=== PATIENT | male | born 1945 | race Caucasian/White ===

== ENCOUNTER 2020-09-11 11:18 | Inpatient (IN) | payer OTHER, MEDICARE ==
[2020-09-11] MEDS ORDERED: Morphine 4 MG/ML VIAL ONE (13:39)
[2020-09-11] MEDS ORDERED: Fentanyl 100 MCG/2 ML VIAL ONE ×2 (14:51→16:24)
[2020-09-11] MEDS ORDERED: Acetaminophen/Codeine 30-300mg Tablet PO PRN (15:52)
[2020-09-11] MEDS ORDERED: Acetaminophen 325 MG TAB PO PRN (15:52)
[2020-09-11] MEDS ORDERED: traMADol HCl 50 MG TAB PO PRN (15:52)
[2020-09-11] MEDS ORDERED: Milk Of Magnesia 30 ML UDCUP PO PRN (15:52)
[2020-09-11] MEDS ORDERED: Ondansetron PF 4 MG/2 ML Vial IVP PRN (15:52)
[2020-09-11] MEDS ORDERED: Fentanyl 100 MCG/2 ML VIAL SLOW IVP PRN (15:52)
[2020-09-11] MEDS ORDERED: Communication Order-Pharmacy FS SCH ×2 (16:00→16:45)
[2020-09-11] MEDS ORDERED: Lidocaine 1% PF 5 ML VIAL ONE (16:31)
[2020-09-11] MEDS ORDERED: Calcium Chloride 1 GM/10 ML Abboject SYRINGE ONE (16:31)
[2020-09-11] MEDS ORDERED: Rocuronium Bromide 10 MG/ML (10ML VIAL) ONE (16:31)
[2020-09-11] MEDS ORDERED: Ondansetron PF 4 MG/2 ML Vial ONE (16:31)
[2020-09-11] MEDS ORDERED: Dexamethasone 20 MG/5 ML VIAL ONE (16:31)
[2020-09-11] MEDS ORDERED: ePHEDrine Sulfate 50 MG/10 ML VIAL ONE ×2 (16:31→18:23)
[2020-09-11] MEDS ORDERED: PROPOFOL 200 MG/20 ML VIAL ONE (16:31)
[2020-09-11] MEDS ORDERED: PHENYLEPHRINE-NS 100 MCG/ML 10 ML SYRINGE ONE ×3 (16:31→17:58)
[2020-09-11] MEDS ORDERED: SUGAMMADEX SODIUM 200 MG/2 ML VIAL ONE (18:04)
[2020-09-11] MEDS ORDERED: Hydrocortisone Sod Succ/PF 100 mg/2 ml Vial IVP SCH (20:15)
[2020-09-11 21:20] LABS: Anion Gap 16 mmol/L (10-20); BUN (Urea Nitrogen) 15 mg/dL (8.4-25.7); Calc. Creatinine Clearance 0 mL/min (70-130); Calcium 8.8 mg/dL (7.8-10.44); Carbon Dioxide 18 mmol/L (23-31); Chloride 108 mmol/L (98-107); Glucose 205 mg/dL (83-110); Magnesium 1.6 mg/dL (1.6-2.6); Phosphorus 5.3 mg/dL (2.3-4.7); Potassium 4.9 mmol/L (3.5-5.1); Sodium 137 mmol/L (136-145)
[2020-09-11 21:40] LABS: #Lymphocytes 0.8 thou/uL (1.20-3.40); #Monocytes 0.6 thou/uL (0.11-0.59); #Neutrophils 9.5 thou/uL (1.40-6.50); %Basophils 0.1 % (0.0-1.0); %Eosinophils 0.2 % (0.0-10.0); %Lymphocytes 7.5 % (21.0-51.0); %Monocytes 5.5 % (0.0-10.0); %Neutrophils 86.7 % (42.0-75.0); Hemoglobin 11.3 g/dL (14.0-18.0); Mean Corpuscular HGB CONC 35.7 g/dL (32.0-36.0); Mean Corpuscular Hemoglobin 35.4 pg (27.0-31.0); Mean Corpuscular Volume 99.2 fL (78.0-98.0); Mean Platelet Volume 8.9 fL (7.4-10.4); Platelet Count 147 thou/uL (130-400); RBC Distribution Width 12.2 % (11.5-14.5)
[2020-09-11] MEDS ORDERED: Magnesium Sulfate 3 GM in Sodium Chloride 0.9% 250 ML 250 ML IVPB SCH (22:30)
[2020-09-11] MEDS: Sodium Chloride 0.9% 1,000 ML IV SCH (23:20)
[2020-09-11] MEDS: CEFAZOLIN 2 GM in Premix Bag 1 BAG IVPB SCH (23:20)
[2020-09-11 23:34] VITALS: BMI 30.9
[2020-09-11 23:50] LABS: Prothrombin Time 16.3 sec (12.0-14.7)
[2020-09-12 00:09] LABS: INR-International Normal Ratio 1.3
[2020-09-12] MEDS ORDERED: Famotidine 20 MG TAB PO SCH (01:15)
[2020-09-12] MEDS ORDERED: Hydrocortisone Sod Succ/PF 100 mg/2 ml Vial IVP SCH (03:00)
[2020-09-12 04:40] LABS: #Lymphocytes 0.9 thou/uL (1.20-3.40); #Neutrophils 6.5 thou/uL (1.40-6.50); %Basophils 0.1 % (0.0-1.0); %Eosinophils 0.1 % (0.0-10.0); %Lymphocytes 10.5 % (21.0-51.0); %Monocytes 11.4 % (0.0-10.0); %Neutrophils 77.9 % (42.0-75.0); Hemoglobin 8.4 g/dL (14.0-18.0); Mean Corpuscular HGB CONC 36.3 g/dL (32.0-36.0); Mean Corpuscular Hemoglobin 36.1 pg (27.0-31.0); Mean Corpuscular Volume 99.4 fL (78.0-98.0); Mean Platelet Volume 9.2 fL (7.4-10.4); Platelet Count 122 thou/uL (130-400); RBC Distribution Width 12.1 % (11.5-14.5); Red Blood Cell (RBC) Count 2.33 mill/uL (4.70-6.10); White Blood Cell (WBC) Count 8.3 thou/uL (4.8-10.8)
[2020-09-12 05:05] LABS: Anion Gap 14 mmol/L (10-20); BUN (Urea Nitrogen) 19 mg/dL (8.4-25.7); Calc. Creatinine Clearance 70 mL/min (70-130); Calcium 8.3 mg/dL (7.8-10.44); Carbon Dioxide 21 mmol/L (23-31); Chloride 108 mmol/L (98-107); Glucose 157 mg/dL (83-110); Magnesium 2.4 mg/dL (1.6-2.6); Potassium 4.5 mmol/L (3.5-5.1); Sodium 138 mmol/L (136-145)
[2020-09-12] MEDS: CEFAZOLIN 2 GM in Premix Bag 1 BAG IVPB SCH (05:14)
[2020-09-12 05:25] LABS: Phosphorus 3.6 mg/dL (2.3-4.7)
[2020-09-12] MEDS: Sodium Chloride 0.9% 1,000 ML IV SCH (07:16)
[2020-09-12] MEDS: Famotidine 20 MG TAB PO SCH ×2 (08:29→20:14)
[2020-09-12] MEDS: Enoxaparin Sodium 30 MG/0.3 ML SYRINGE SC SCH (08:29)
[2020-09-12] MEDS: traMADol HCl 50 MG TAB PO SCH ×3 (12:22→23:54)
[2020-09-12] MEDS: Ferrous Sulfate 325 MG TAB PO SCH (16:03)
[2020-09-12] MEDS: Ascorbic Acid 500 mg Chewable Tablet PO SCH (20:14)
[2020-09-13 05:37] LABS: #Lymphocytes 1.4 thou/uL (1.20-3.40); #Neutrophils 5.8 thou/uL (1.40-6.50); %Eosinophils 0.1 % (0.0-10.0); %Lymphocytes 17.1 % (21.0-51.0); %Monocytes 12.6 % (0.0-10.0); %Neutrophils 70.2 % (42.0-75.0); Hemoglobin 6.6 g/dL (14.0-18.0); Mean Corpuscular HGB CONC 36.1 g/dL (32.0-36.0); Mean Corpuscular Volume 99.8 fL (78.0-98.0); Platelet Count 98 thou/uL (130-400); Red Blood Cell (RBC) Count 1.84 mill/uL (4.70-6.10); White Blood Cell (WBC) Count 8.2 thou/uL (4.8-10.8)
[2020-09-13 05:50] LABS: Anion Gap 10 mmol/L (10-20); BUN (Urea Nitrogen) 21 mg/dL (8.4-25.7); Calc. Creatinine Clearance 93 mL/min (70-130); Calcium 7.6 mg/dL (7.8-10.44); Carbon Dioxide 21 mmol/L (23-31); Chloride 110 mmol/L (98-107); Glucose 111 mg/dL (83-110); Magnesium 1.9 mg/dL (1.6-2.6); Potassium 4.4 mmol/L (3.5-5.1); Sodium 137 mmol/L (136-145)
[2020-09-13] MEDS: traMADol HCl 50 MG TAB PO SCH ×3 (06:04→17:44)
[2020-09-13] MEDS ORDERED: Rosuvastatin 10 MG TAB PO SCH (09:00)
[2020-09-13] MEDS: Ascorbic Acid 500 mg Chewable Tablet PO SCH ×2 (09:20→20:45)
[2020-09-13] MEDS: Ferrous Sulfate 325 MG TAB PO SCH ×2 (09:20→17:46)
[2020-09-13] MEDS: Enoxaparin Sodium 30 MG/0.3 ML SYRINGE SC SCH (10:59)
[2020-09-13] MEDS: Famotidine 20 MG TAB PO SCH ×2 (10:59→17:45)
[2020-09-13] MEDS: traMADol HCl 50 MG TAB PO PRN (15:11)
[2020-09-13] MEDS: Ibuprofen 200 MG TAB PO SCH (20:45)
[2020-09-13] MEDS: Rosuvastatin 10 MG TAB PO SCH (20:45)
[2020-09-14] MEDS: traMADol HCl 50 MG TAB PO SCH ×4 (00:20→16:54)
[2020-09-14] MEDS: Ibuprofen 200 MG TAB PO SCH ×3 (04:31→20:57)
[2020-09-14 06:14] LABS: Anion Gap 10 mmol/L (10-20); BUN (Urea Nitrogen) 16 mg/dL (8.4-25.7); Calc. Creatinine Clearance 98 mL/min (70-130); Calcium 7.9 mg/dL (7.8-10.44); Carbon Dioxide 24 mmol/L (23-31); Chloride 109 mmol/L (98-107); Glucose 101 mg/dL (83-110); Potassium 4.2 mmol/L (3.5-5.1); Sodium 139 mmol/L (136-145)
[2020-09-14 06:20] LABS: #Eosinphils 0.1 thou/uL (0.0-0.7); #Lymphocytes 1.4 thou/uL (1.20-3.40); #Monocytes 0.8 thou/uL (0.11-0.59); #Neutrophils 4.8 thou/uL (1.40-6.50); %Basophils 0.3 % (0.0-1.0); %Lymphocytes 19.6 % (21.0-51.0); %Monocytes 11.7 % (0.0-10.0); %Neutrophils 66.5 % (42.0-75.0); Hemoglobin 7.3 g/dL (14.0-18.0); Mean Corpuscular HGB CONC 36.6 g/dL (32.0-36.0); Mean Corpuscular Hemoglobin 35.6 pg (27.0-31.0); Mean Corpuscular Volume 97.4 fL (78.0-98.0); Mean Platelet Volume 8.4 fL (7.4-10.4); Platelet Count 87 thou/uL (130-400); RBC Distribution Width 12.8 % (11.5-14.5); Red Blood Cell (RBC) Count 2.05 mill/uL (4.70-6.10); White Blood Cell (WBC) Count 7.2 thou/uL (4.8-10.8)
[2020-09-14] MEDS: Ferrous Sulfate 325 MG TAB PO SCH ×2 (08:25→16:53)
[2020-09-14] MEDS: Ascorbic Acid 500 mg Chewable Tablet PO SCH ×2 (08:25→20:58)
[2020-09-14] MEDS: Enoxaparin Sodium 30 MG/0.3 ML SYRINGE SC SCH (09:44)
[2020-09-14] MEDS: Famotidine 20 MG TAB PO SCH (16:53)
[2020-09-14] MEDS: Rosuvastatin 10 MG TAB PO SCH (20:58)
[2020-09-15] MEDS: traMADol HCl 50 MG TAB PO SCH ×5 (00:08→22:31)
[2020-09-15] MEDS: Ibuprofen 200 MG TAB PO SCH ×2 (04:39→11:44)
[2020-09-15 06:26] LABS: Hemoglobin 7.4 g/dL (14.0-18.0); Platelet Count 137 thou/uL (130-400)
[2020-09-15] MEDS ORDERED: Senokot S 8.6-50 MG TAB PO SCH (09:00)
[2020-09-15] MEDS: Ferrous Sulfate 325 MG TAB PO SCH ×3 (09:01→20:48)
[2020-09-15] MEDS: Ascorbic Acid 500 mg Chewable Tablet PO SCH ×2 (09:01→20:48)
[2020-09-15] MEDS: Polyethylene Glycol 3350 17 GM Packet PO SCH (09:02)
[2020-09-15] MEDS: Enoxaparin Sodium 30 MG/0.3 ML SYRINGE SC SCH (09:03)
[2020-09-15 13:03] LABS: #Basophils 0.1 thou/uL (0.0-0.2); #Eosinphils 0.1 thou/uL (0.0-0.7); #Lymphocytes 1.2 thou/uL (1.20-3.40); #Monocytes 0.7 thou/uL (0.11-0.59); #Neutrophils 6.6 thou/uL (1.40-6.50); %Basophils 0.7 % (0.0-1.0); %Eosinophils 1.2 % (0.0-10.0); %Lymphocytes 14.1 % (21.0-51.0); %Neutrophils 76.1 % (42.0-75.0); Hemoglobin 8.1 g/dL (14.0-18.0); Mean Corpuscular HGB CONC 33.8 g/dL (32.0-36.0); Mean Corpuscular Hemoglobin 33.4 pg (27.0-31.0); Mean Corpuscular Volume 98.7 fL (78.0-98.0); Mean Platelet Volume 8.5 fL (7.4-10.4); Platelet Count 174 thou/uL (130-400); RBC Distribution Width 12.9 % (11.5-14.5); Red Blood Cell (RBC) Count 2.43 mill/uL (4.70-6.10); White Blood Cell (WBC) Count 8.6 thou/uL (4.8-10.8)
[2020-09-15] MEDS: Famotidine 20 MG TAB PO SCH (16:45)
[2020-09-15] MEDS: Senokot S 8.6-50 MG TAB PO SCH (20:49)
[2020-09-15] MEDS: Rosuvastatin 10 MG TAB PO SCH (20:49)
[2020-09-15] MEDS: Ibuprofen 200 MG TAB PO PRN (20:51)
[2020-09-16] MEDS: traMADol HCl 50 MG TAB PO SCH ×3 (05:30→18:10)
[2020-09-16 05:54] LABS: #Eosinphils 0.2 thou/uL (0.0-0.7); #Lymphocytes 1.7 thou/uL (1.20-3.40); #Monocytes 0.8 thou/uL (0.11-0.59); #Neutrophils 4.4 thou/uL (1.40-6.50); %Basophils 0.5 % (0.0-1.0); %Eosinophils 2.4 % (0.0-10.0); %Lymphocytes 23.9 % (21.0-51.0); %Monocytes 11.2 % (0.0-10.0); %Neutrophils 62.1 % (42.0-75.0); Hemoglobin 7.6 g/dL (14.0-18.0); Mean Corpuscular HGB CONC 36.6 g/dL (32.0-36.0); Mean Corpuscular Hemoglobin 35.8 pg (27.0-31.0); Mean Corpuscular Volume 97.8 fL (78.0-98.0); Mean Platelet Volume 8.2 fL (7.4-10.4); Platelet Count 174 thou/uL (130-400); RBC Distribution Width 13.3 % (11.5-14.5); Red Blood Cell (RBC) Count 2.11 mill/uL (4.70-6.10); White Blood Cell (WBC) Count 7.2 thou/uL (4.8-10.8)
[2020-09-16] MEDS: Senokot S 8.6-50 MG TAB PO SCH ×2 (08:35→21:15)
[2020-09-16] MEDS: Ferrous Sulfate 325 MG TAB PO SCH ×2 (08:35→21:15)
[2020-09-16] MEDS: Ascorbic Acid 500 mg Chewable Tablet PO SCH ×2 (08:35→21:15)
[2020-09-16] MEDS: Polyethylene Glycol 3350 17 GM Packet PO SCH (08:37)
[2020-09-16] MEDS ORDERED: Enoxaparin Sodium 40 MG/0.4 ML SYRINGE SC SCH (09:00)
[2020-09-16] MEDS ORDERED: Aspirin 81 mg Enteric Coated Tablet PO SCH (09:00)
[2020-09-16] MEDS: traMADol HCl 50 MG TAB PO PRN ×2 (11:13→18:11)
[2020-09-16] MEDS: Famotidine 20 MG TAB PO SCH (18:11)
[2020-09-16] MEDS: Rosuvastatin 10 MG TAB PO SCH (21:15)
[2020-09-17] MEDS: traMADol HCl 50 MG TAB PO SCH ×5 (00:23→22:18)
[2020-09-17 06:43] LABS: #Eosinphils 0.1 thou/uL (0.0-0.7); #Lymphocytes 1.9 thou/uL (1.20-3.40); #Monocytes 1.3 thou/uL (0.11-0.59); #Neutrophils 11.4 thou/uL (1.40-6.50); %Basophils 0.1 % (0.0-1.0); %Eosinophils 0.5 % (0.0-10.0); %Lymphocytes 12.8 % (21.0-51.0); %Neutrophils 77.6 % (42.0-75.0); Hemoglobin 7.9 g/dL (14.0-18.0); Mean Corpuscular HGB CONC 36.6 g/dL (32.0-36.0); Mean Corpuscular Hemoglobin 36.2 pg (27.0-31.0); Mean Corpuscular Volume 98.8 fL (78.0-98.0); Platelet Count 219 thou/uL (130-400); RBC Distribution Width 13.3 % (11.5-14.5); Red Blood Cell (RBC) Count 2.19 mill/uL (4.70-6.10); White Blood Cell (WBC) Count 14.7 thou/uL (4.8-10.8)
[2020-09-17 07:00] LABS: Anion Gap 12 mmol/L (10-20); BUN (Urea Nitrogen) 21 mg/dL (8.4-25.7); Calc. Creatinine Clearance 103 mL/min (70-130); Carbon Dioxide 21 mmol/L (23-31); Chloride 106 mmol/L (98-107); Glucose 110 mg/dL (83-110); Phosphorus 2.6 mg/dL (2.3-4.7); Sodium 135 mmol/L (136-145)
[2020-09-17] MEDS: Ibuprofen 200 MG TAB PO PRN (09:59)
[2020-09-17] MEDS: Enoxaparin Sodium 40 MG/0.4 ML SYRINGE SC SCH (09:59)
[2020-09-17] MEDS: Senokot S 8.6-50 MG TAB PO SCH ×2 (09:59→21:06)
[2020-09-17] MEDS: Polyethylene Glycol 3350 17 GM Packet PO SCH (10:00)
[2020-09-17] MEDS: Ferrous Sulfate 325 MG TAB PO SCH ×2 (10:00→21:06)
[2020-09-17] MEDS: Ascorbic Acid 500 mg Chewable Tablet PO SCH ×2 (10:00→21:06)
[2020-09-17] MEDS ORDERED: Sodium Phosphate 30 MMOL in Sodium Chloride 0.9% 250 ML 250 ML IVPB SCH (11:45)
[2020-09-17] MEDS: Famotidine 20 MG TAB PO SCH (17:21)
[2020-09-17] MEDS: traMADol HCl 50 MG TAB PO PRN (17:22)
[2020-09-17] MEDS: Rosuvastatin 10 MG TAB PO SCH (21:06)
[2020-09-18] MEDS: traMADol HCl 50 MG TAB PO SCH ×4 (04:35→23:54)
[2020-09-18] MEDS: Ibuprofen 200 MG TAB PO PRN (06:26)
[2020-09-18] MEDS: Ascorbic Acid 500 mg Chewable Tablet PO SCH ×2 (08:24→21:07)
[2020-09-18] MEDS: Enoxaparin Sodium 40 MG/0.4 ML SYRINGE SC SCH (08:24)
[2020-09-18] MEDS: Ferrous Sulfate 325 MG TAB PO SCH ×2 (08:24→21:07)
[2020-09-18] MEDS: Senokot S 8.6-50 MG TAB PO SCH (09:30)
[2020-09-18] MEDS: Polyethylene Glycol 3350 17 GM Packet PO SCH (09:30)
[2020-09-18] MEDS: Famotidine 20 MG TAB PO SCH (17:06)
[2020-09-18] MEDS ORDERED: Ubidecarenone 50 MG CAP PO SCH (21:00)
[2020-09-18] MEDS: Rosuvastatin 10 MG TAB PO SCH (21:07)
[2020-09-19] MEDS: traMADol HCl 50 MG TAB PO SCH ×2 (04:30→11:29)
[2020-09-19] MEDS: Ferrous Sulfate 325 MG TAB PO SCH (08:15)
[2020-09-19] MEDS: Ascorbic Acid 500 mg Chewable Tablet PO SCH (08:16)
[2020-09-19] MEDS: Enoxaparin Sodium 40 MG/0.4 ML SYRINGE SC SCH (08:16)
[2020-09-19 11:09] VITALS: BP 112/63; TEMP 98.5
[2020-09-19] MEDS: Ibuprofen 200 MG TAB PO PRN (11:28)
== END 2020-09-19 14:01 | DRG 481 ==
LOC: SURG A 12:21 → CCU 20:47 → SURG A 09-12 14:32
PROVIDERS: ADMIT Surgery; ATTEND Surgery
PROC: 0QS604Z Reposition Right Upper Femur with Internal Fixation Device, Open Approach (ICD-10-PCS; principal; 2020-09-11)
PROC: 0CQ1XZZ Repair Lower Lip, External Approach (ICD-10-PCS; 2020-09-11)
PROC: 30233N1 Transfusion of Nonautologous Red Blood Cells into Peripheral Vein, Percutaneous Approach (ICD-10-PCS; 2020-09-13)
DX: S72.8X1A Other fracture of right femur, initial encounter for closed fracture (principal); D62 Acute posthemorrhagic anemia; E78.5 Hyperlipidemia, unspecified; I25.10 Atherosclerotic heart disease of native coronary artery without angina pectoris; I10 Essential (primary) hypertension; W11.XXXA Fall on and from ladder, initial encounter; S01.511A Laceration without foreign body of lip, initial encounter; I95.89 Other hypotension; D69.6 Thrombocytopenia, unspecified; E83.39 Other disorders of phosphorus metabolism; Z95.5 Presence of coronary angioplasty implant and graft; Z90.49 Acquired absence of other specified parts of digestive tract; Y92.89 Other specified places as the place of occurrence of the external cause; Z86.718 Personal history of other venous thrombosis and embolism
CPT/HCPCS: 36415; 36416; 36430; 76000; 80048; 82533; 83735; 83880; 84100; 85014; 85018; 85025; 85049; 86850; 86900; 86901; 93306; C1713; J0690; J1100; J1650; J2270; J2405; J2704; J3010; J3475; J7050; P9016; P9045

== ENCOUNTER 2020-11-05 09:39 | Inpatient (IN) | payer MEDICARE ==
[2020-11-05 10:50] LABS: #Basophils 0.1 thou/uL (0.0-0.2); #Eosinphils 0.9 thou/uL (0.0-0.7); #Lymphocytes 1.5 thou/uL (1.20-3.40); #Monocytes 0.6 thou/uL (0.11-0.59); #Neutrophils 4.8 thou/uL (1.40-6.50); %Basophils 0.7 % (0.0-1.0); %Eosinophils 11.5 % (0.0-10.0); %Lymphocytes 19.2 % (21.0-51.0); %Monocytes 7.4 % (0.0-10.0); %Neutrophils 61.2 % (42.0-75.0); Hemoglobin 14.2 g/dL (14.0-18.0); Mean Corpuscular HGB CONC 34.6 g/dL (32.0-36.0); Mean Corpuscular Hemoglobin 33.2 pg (27.0-31.0); Mean Corpuscular Volume 95.9 fL (78.0-98.0); Mean Platelet Volume 8.8 fL (7.4-10.4); Platelet Count 260 thou/uL (130-400); RBC Distribution Width 13.2 % (11.5-14.5); Red Blood Cell (RBC) Count 4.29 mill/uL (4.70-6.10); White Blood Cell (WBC) Count 7.8 thou/uL (4.8-10.8)
[2020-11-05] MEDS ORDERED: Cefepime 2 GM VIAL ONE (11:02)
[2020-11-05 11:12] LABS: ALT (SGPT) 18 U/L (8-55); AST (SGOT) 30 U/L (5-34); Albumin 4.1 g/dL (3.4-4.8); Alkaline Phosphatase 145 U/L (40-110); Anion Gap 18 mmol/L (10-20); BUN (Urea Nitrogen) 11 mg/dL (8.4-25.7); Bilirubin, Total 0.8 mg/dL (0.2-1.2); Calc. Creatinine Clearance 0 mL/min (70-130); Calcium 9.6 mg/dL (7.8-10.44); Carbon Dioxide 19 mmol/L (23-31); Chloride 106 mmol/L (98-107); Glucose 98 mg/dL (83-110); Potassium 4.6 mmol/L (3.5-5.1); Protein, Total 7.1 g/dL (5.8-8.1); Sodium 138 mmol/L (136-145)
[2020-11-05] MEDS ORDERED: VANCOMYCIN 2 GRAM/400 ML BAG 2 GM in Premix Bag 1 BAG IVPB SCH (11:15)
[2020-11-05 11:34] LABS: Bacteria/HPF None Seen HPF (None Seen); Bilirubin Negative (Negative); Blood, Urine 1+ (Negative); Clarity Clear (Clear); Glucose, Urine (Dipstick) Normal (Negative); Ketone, Urine Negative (Negative); Leukocyte Negative Leu/uL (Negative); Nitrite Negative (Negative); Protein, Urine (Dipstick) Negative (Neg-Trace); RBC/HPF 0-3 HPF (0-3); Specific Gravity, Urine 1.007 (1.002-1.036); Squamous Epithelial None Seen HPF (0-3); Urobilinogen Normal mg/dL (Less than 2); WBC/HPF 0-3 HPF (0-3); pH, Urine 6.5 (5.0-9.0)
[2020-11-05] MEDS ORDERED: Acetaminophen 325 MG TAB PO PRN (14:56)
[2020-11-05] MEDS ORDERED: Ondansetron PF 4 MG/2 ML Vial IVP PRN (14:56)
[2020-11-05] MEDS ORDERED: Ondansetron ODT 4 MG TAB PO PRN (14:56)
[2020-11-05] MEDS ORDERED: Acetaminophen 650 MG Suppository PR PRN (14:56)
[2020-11-05 15:05] LABS: SARS-CoV-2 NAA Rapid Test Not Detected (NotDetected)
[2020-11-05 20:25] VITALS: BMI 26.4
[2020-11-05] MEDS: Enoxaparin Sodium 80 MG/0.8 ML SYRINGE SC SCH ×2 (20:37→21:45)
[2020-11-05] MEDS ORDERED: Apixaban 5 MG TAB PO SCH (21:00)
[2020-11-05] MEDS: ceFAZolin 1 GM/D5W 1 GM in Premix Bag 1 BAG IVPB SCH (21:46)
[2020-11-06] MEDS: ceFAZolin 1 GM/D5W 1 GM in Premix Bag 1 BAG IVPB SCH ×2 (05:05→14:37)
[2020-11-06 05:25] LABS: #Basophils 0.1 thou/uL (0.0-0.2); #Lymphocytes 1.8 thou/uL (1.20-3.40); #Monocytes 0.6 thou/uL (0.11-0.59); #Neutrophils 3.6 thou/uL (1.40-6.50); %Basophils 0.7 % (0.0-1.0); %Eosinophils 14.3 % (0.0-10.0); %Monocytes 9.2 % (0.0-10.0); %Neutrophils 50.7 % (42.0-75.0); Hemoglobin 12.1 g/dL (14.0-18.0); Mean Corpuscular HGB CONC 34.9 g/dL (32.0-36.0); Mean Corpuscular Hemoglobin 33.7 pg (27.0-31.0); Mean Corpuscular Volume 96.4 fL (78.0-98.0); Mean Platelet Volume 8.7 fL (7.4-10.4); Platelet Count 235 thou/uL (130-400); Red Blood Cell (RBC) Count 3.58 mill/uL (4.70-6.10)
[2020-11-06 05:44] LABS: Anion Gap 10 mmol/L (10-20); BUN (Urea Nitrogen) 9 mg/dL (8.4-25.7); Calc. Creatinine Clearance 88 mL/min (70-130); Calcium 9.1 mg/dL (7.8-10.44); Carbon Dioxide 25 mmol/L (23-31); Chloride 108 mmol/L (98-107); Glucose 96 mg/dL (83-110); Potassium 4.1 mmol/L (3.5-5.1); Sodium 139 mmol/L (136-145)
[2020-11-06] MEDS ORDERED: Enoxaparin Sodium 80 MG/0.8 ML SYRINGE SC SCH ×2 (11:45→14:30)
[2020-11-06] MEDS: Ampicillin/Sulbactam 3 GM in Sodium Chloride 0.9% 100 ML IVPB SCH ×2 (17:15→22:00)
[2020-11-07] MEDS ORDERED: Enoxaparin Sodium 80 MG/0.8 ML SYRINGE SC SCH (02:00)
[2020-11-07] MEDS ORDERED: Apixaban 5 MG TAB PO SCH ×2 (02:00→09:00)
[2020-11-07] MEDS: Ampicillin/Sulbactam 3 GM in Sodium Chloride 0.9% 100 ML IVPB SCH ×2 (04:33→10:21)
[2020-11-07 05:38] LABS: #Eosinphils 1.1 thou/uL (0.0-0.7); #Lymphocytes 1.7 thou/uL (1.20-3.40); #Monocytes 0.5 thou/uL (0.11-0.59); #Neutrophils 2.7 thou/uL (1.40-6.50); %Basophils 0.8 % (0.0-1.0); %Eosinophils 18.4 % (0.0-10.0); %Lymphocytes 28.1 % (21.0-51.0); %Monocytes 8.1 % (0.0-10.0); %Neutrophils 44.7 % (42.0-75.0); Hemoglobin 11.9 g/dL (14.0-18.0); Mean Corpuscular HGB CONC 34.9 g/dL (32.0-36.0); Mean Corpuscular Hemoglobin 33.3 pg (27.0-31.0); Mean Corpuscular Volume 95.5 fL (78.0-98.0); Mean Platelet Volume 8.6 fL (7.4-10.4); Platelet Count 230 thou/uL (130-400); RBC Distribution Width 13.3 % (11.5-14.5); Red Blood Cell (RBC) Count 3.56 mill/uL (4.70-6.10); White Blood Cell (WBC) Count 6.1 thou/uL (4.8-10.8)
[2020-11-07 05:59] LABS: Anion Gap 11 mmol/L (10-20); BUN (Urea Nitrogen) 8 mg/dL (8.4-25.7); Calc. Creatinine Clearance 91 mL/min (70-130); Calcium 8.9 mg/dL (7.8-10.44); Carbon Dioxide 24 mmol/L (23-31); Chloride 107 mmol/L (98-107); Glucose 97 mg/dL (83-110); Potassium 3.7 mmol/L (3.5-5.1); Sodium 138 mmol/L (136-145)
[2020-11-07 16:21] VITALS: BP 144/82; TEMP 98.7
== END 2020-11-07 16:51 | disposition home or self-care (01) | DRG 300 ==
LOC: ERS 09:39 → ERHOLD 13:31 → OBSVTOIN 15:43 → SURG A 18:56
PROVIDERS: ADMIT Internal Medicine; ATTEND Internal Medicine
DX: I82.431 Acute embolism and thrombosis of right popliteal vein (principal); I80.11 Phlebitis and thrombophlebitis of right femoral vein; L03.115 Cellulitis of right lower limb; I80.221 Phlebitis and thrombophlebitis of right popliteal vein; I82.4Z1 Acute embolism and thrombosis of unspecified deep veins of right distal lower extremity; Z20.822 Contact with and (suspected) exposure to COVID-19; I25.10 Atherosclerotic heart disease of native coronary artery without angina pectoris; I45.10 Unspecified right bundle-branch block; I10 Essential (primary) hypertension; Z95.5 Presence of coronary angioplasty implant and graft; Z87.442 Personal history of urinary calculi; Z91.81 History of falling; Z79.82 Long term (current) use of aspirin; Z79.899 Other long term (current) drug therapy
CPT/HCPCS: 0240U; 36415; 80048; 80053; 81003; 81015; 83605; 83880; 84484; 85025; 87040; 87086; 93005; 96365; 96366; 96367; G0378; J0295; J0690; J0692; J1650; J3370; J3490

== ENCOUNTER 2023-11-08 07:58 | Outpatient (CLI) | payer MEDICARE ==
[2023-11-08] MEDS ORDERED: Regadenoson 0.4 MG/5 ML SYRINGE ONE (09:31)
== END 2023-11-08 07:59 | disposition home or self-care (01) ==
LOC: NM 07:58
PROVIDERS: ATTEND Internal Medicine
DX: I25.10 Atherosclerotic heart disease of native coronary artery without angina pectoris (principal)
CPT/HCPCS: 78452; 93017; A9502; J2785 ×2